=== PATIENT | male | born 1970 | race Caucasian/White ===

== ENCOUNTER 2019-06-06 22:53 | Emergency (ER) | payer SELFPAY ==
[~2019-06-06] VITALS: Ht 185.4 cm; Wt 84.0 kg
[2019-06-06 23:59] VITALS: BP 151/93
[2019-06-07] MEDS ORDERED: SODIUM CHLORIDE 0.9% 1,000 ML IV ONE (00:04)
== END 2019-06-07 02:00 | disposition left against medical advice (07) ==
LOC: EDSEX 22:53 → ER 22:53
DX: F10.129 Alcohol abuse with intoxication, unspecified (principal); E11.9 Type 2 diabetes mellitus without complications; Y90.9 Presence of alcohol in blood, level not specified
CPT/HCPCS: 99283; J7030